=== PATIENT | male | born 1960 | race Caucasian/White ===

== ENCOUNTER 2021-09-18 14:10 | Emergency (ER) | payer OTHER, SELFPAY ==
[2021-09-18 14:10] VITALS: BP 124/78; PULSE 111; RESP 22; TEMP 36; BMI 21.2
--- NOTE | 2021-09-18 14:27 | CT_ITS ---
STUDY: CT ABDOMEN AND PELVIS WITH CONTRAST REASON FOR EXAM: Male, 61 years old. Abdominal pain RADIATION DOSAGE (If Supplied By Facility): CTDIvol = ( 11.4 ) mGy, DLP = ( 743.67 ) mGycm TECHNIQUE: Transaxial images were obtained from the dome of the diaphragm to the symphysis pubis without oral contrast. IV 100mL Isovue-300 was administered. Sagittal and coronal images were reconstructed. Individualized dose optimization techniques were used for this CT. COMPARISON: None. FINDINGS: Focal right lower lobe infiltrate. The visualized portions of the heart are within normal limits. Small amount of free intraperitoneal air. Normal liver. There is a small amount of right perihepatic fluid. Fluid is also seen in the subhepatic space on the right side. There is a 1.6 x 1.5 cm cyst in the inferior lateral aspect of the right lobe of the liver. Mildly distended gallbladder lumen. Normal spleen. Normal pancreas. Normal bilateral adrenal glands. Normal right kidney. Normal left kidney. Retroaortic left renal vein. This is a normal variant. There is a moderate-sized hiatal hernia. There appears to be prior right hemicolectomy and anastomosis. There is evidence of diffuse thickening and abnormal appearance of the terminal ileum with increased markings in the surrounding peritoneal fat. There is also evidence of diffuse abnormal thickening of the wall of the distal colon suggestive of a colitis. Fluid is also seen within the pelvis. Diffuse abnormal thickening of the transverse colon. There are multiple colonic diverticula consistent with diverticulosis. Contain air is seen within the sigmoid mesentery. The patient is status post appendectomy. Normal abdominal aorta. Normal inferior vena cava. Normal retroperitoneum. Normal urinary bladder. Normal abdominal wall. Normal osseous structures. CT/Abdomen/Pelvis W IV Cont ONLY IMPRESSION: Ascites. Small amount of free intraperitoneal air as well as contained air within the mesentery in the sigmoid region. Abnormal appearance of the terminal ileum as well as the rectosigmoid colon. Surgical anastomosis seen in the right lower quadrant. Possible prior right hemicolectomy. Diffuse thickening of the transverse colon. Electronically Signed: Marques Rosado MD at 15:44 EDT ,
--- NOTE | 2021-09-18 14:28 | EDS_ITS ---
HPI History of Present Illness Chief Complaint: Abd Pain Informant: patient and spouse/S.O. Narrative Narrative: 61-year-old male presents to the emergency department with a chief complaint of abdominal pain. He states he had a small amount of abdominal discomfort yesterday and this morning but by around noon became severe. He describes it as across the lower abdomen below the umbilicus. He has had prior appendectomy. He denies any testicular pain or urinary symptoms. He notes some constipation over the past few days. He states that he has been on vacation and eating different things than normal. [facility] Medical History HTN (hypertension) Allergy/AdvReac Type Severity Reaction Status Date / Time No Known Allergies Allergy Verified 09/18/21 14:10 Surgical History History of appendectomy Social History (Updated 09/18/21 @ 14:[address] Evens Shelby DO) current gender identity: male Smoking Status: Never smoker ROS ROS ED Constitutional Constitutional ED: Denies chills, fever(s) or weight loss Eyes Eyes: Denies change in vision or diplopia ENT ENT ED: Denies ear pain, rhinorrhea or sore throat Cardiovascular Cardiovascular: Denies chest pain, orthopnea, palpitations or racing heartbeat Respiratory/Chest Respiratory/Chest: Denies cough, dyspnea or orthopnea Gastrointestinal Gastrointestinal: Reports abdominal pain, constipation and nausea; Denies diarrhea or vomiting Genitourinary Genitourinary ED: Denies dysuria, hematuria or urinary frequency Musculoskeletal Musculoskeletal: Denies arthralgias or myalgias Integumentary Denies abscess or rash Neurologic Neurologic: Denies headache(s) or weakness Psychiatric Psychiatric: Denies anxiety, depression, suicidal ideation or suicidal thoughts Endocrine Endocrinology: Denies polydipsia, polyphagia or polyuria Allergic/Immunologic Allergic/Immunologic ED: Denies mouth swelling, tongue swelling or urticaria EXAM Physical Exam Const Vital Signs: 09/18/21 14:10 Temperature 96.8 F L Temperature Source Temporal Pulse Rate 111 H Respiratory Rate 22 H Blood Pressure 124/78 H Blood Pressure Mean 93 Positive well nourished and well developed General Appearance ED: well developed HEENT Reports normocephalic, head/scalp atraumatic, TM's clear and moist mucous membranes Negative for trauma Tympanic Membrane ED: Yes TM's clear Eyes PERRL and EOMs intact bilaterally Neck no lymphadenopathy, supple and no JVD Resp normal respiratory effort and clear to auscultation bilaterally Cardio regular rate, regular rhythm and no murmurs GI GI Narrative: Patient reports tenderness palpation across the lower quadrants of his abdomen. He is guarding and laying on his side with knees bent. This makes examination somewhat difficult. Auscultation: hypoactive bowel sounds Palpation: soft, tender, guarding and rebound tenderness present Back/Spine no CVA tenderness and normal ROM Extremity normal to inspection General Extremety ED: Negative for edema General Extremity: Negative for edema Neuro oriented x3 and CN's II-XII intact bilaterally Sensorium / Orientation: alert Motor Exam: strength 5/5 throughout Psych mental status grossly normal Mood & Affect: Negative for depressed or tearful Skin no rashes or lesions noted and no wounds MDM MDM MDM Narrative Medical decision making narrative: White count elevated 11.4. Glucose 193. Patient received morphine and Zofran and fluids. CT the abdomen pelvis demonstrates ascites intraperitoneal free air and in the mesentery of the sigmoid colon. There is an abnormal thickening of the terminal ileum as well as the transverse colon and rectosigmoid colon. Zosyn was ordered. Case was discussed with on-call surgeon Dr. Sun. He recommends as he is currently taking a complicated prolonged case to the operating room that consideration to transferring him to tertiary care with colorectal surgery should be given. I spoke with the family and the is employed through [employer] and would like to go to [facility] if possible. Lab Data Attestation: I reviewed the patient's lab results. Labs: Laboratory Results - last 24 hr 09/18/21 09/18/21 14:25 14:25 WBC 11.4 H RBC 5.53 Hgb 15.4 Hct 47.9 MCV 86.6 MCH 27.8 MCHC 32.2 RDW Std Deviation 41.5 RDW Coeff of Christelle 13.1 Plt Count 189 MPV 11.9 Immature Gran % (Auto) 0.300 Neut % (Auto) 80.1 H Lymph % (Auto) 12.3 L Summers % (Auto) 6.4 Eos % (Auto) 0.6 Baso % (Auto) 0.3 Absolute Neuts (auto) 9.2 H Absolute Lymphs (auto) 1.41 Nucleated RBC % 0 Sodium 141 Potassium 3.4 L Chloride 107 Carbon Dioxide 26.0 Anion Gap 8 BUN 17 Creatinine 1.14 Estim Creat Clear Calc 78.33 Est GFR (MDRD) Af Amer 84 Est GFR (MDRD) Non-Af 70 BUN/Creatinine Ratio 14.9 Glucose 193 H Calcium 9.1 Total Bilirubin 0.70 AST 19 ALT 24 Alkaline Phosphatase 72 Total Protein 7.4 Albumin 3.8 Globulin 3.6 Albumin/Globulin Ratio 1.1 Lipase 67 L Radiography Diagnostic Testing: Clinical Impression(s) from Imaging Studies Abdomen/Pelvis CT 09/18/21 14:27 IMPRESSION: Ascites. Small amount of free intraperitoneal air as well as contained air within the mesentery in the sigmoid region. Abnormal appearance of the terminal ileum as well as the rectosigmoid colon. Surgical anastomosis seen in the right lower quadrant. Possible prior right hemicolectomy. Diffuse thickening of the transverse colon. Electronically Signed: Marques Rosado MD at 15:44 EDT , Discharge Plan Triage Chief Complaint: Abd Pain ED Provider: Evens Shelby Dx/Rx/DC Orders Clinical Impression: Abdominal pain, acute, Colitis, Perforated abdominal viscus Primary Care Provider: Ally Gamboa Referrals: Ally Gamboa MD [Primary Care Provider] - Disposition Disposition: Acute Care Hospital Discharge Location: [facility]
[2021-09-18 14:41] LABS: Absolute Lymphocyte Count 1.41 X10^3/uL (0.83-4.51); Absolute Neutrophil Count 9.2 X10^3/uL (2.0-7.7); Basophil# 0.03 X10^3/uL; Basophil% 0.3 % (0-1); Eosinophil# 0.07 X10^3/uL; Eosinophils% 0.6 % (0-5); Hematocrit 47.9 % (40-54); Hemoglobin 15.4 g/dL (13.0-16.5); Lymphocyte # 1.41 X10^3/ul (0.83-4.51); Lymphocyte % 12.3 % (19-41); Mean Corp Hgb Conc 32.2 g/dL (32-36); Mean Corpuscular Hgb 27.8 pg (27.0-32.0); Mean Corpuscular Volume 86.6 fL (80-94); Mean Platelet Vol. 11.9 fl (6.2-12.0); Monocyte# 0.73 X10^3/uL; Monocyte% 6.4 % (0-10); NRBC Flagged by Analyzer 0 % (0-5); Neutrophil # 9.16 X10^3/uL (2.7-7.7); Neutrophil % 80.1 % (47-70); Platelet Count 189 K/mm3 (150-450); RBC Distribution Width CV 13.1 % (11.6-14.6); RBC Distribution Width SD 41.5 fl (35.1-43.9); Red Blood Count 5.53 M/mm3 (4.6-6.2); White Blood Count 11.4 K/mm3 (4.4-11.0)
[2021-09-18] MEDS: Morphine 4 MG/ML Syringe IV ×3 (14:44→19:16)
[2021-09-18] MEDS: Ondansetron 4 MG/2 ML Vial IV ×3 (14:44→19:16)
[2021-09-18] MEDS: 0.9% Normal Saline 1,000 ML 1000 ML IV (14:44)
[2021-09-18 15:03] LABS: ALB/GLOB Ratio 1.1 RATIO (0.9-2.4); AST(SGOT) 19 U/L (15-37); Alanine Aminotransfer ALT/SGPT 24 U/L (16-61); Albumin, Serum 3.8 g/dL (3.2-5.0); Alkaline Phosphatase 72 U/L (45-117); Anion Gap 8 (5-15); BUN 17 mg/dL (7-18); BUN/Creat Ratio 14.9 RATIO (10-20); Calcium,Total 9.1 mg/dL (8.5-10.1); Chloride 107 mmol/L (98-107); Creatinine, Serum 1.14 mg/dL (0.70-1.30); EST Glomerular Filtration Rate 70 mL/min (>60); Est Glom Filt Rate - Afr Amer 84 mL/min (>60); Estimated Creatinine Clearance 78.33 ml/min; Globulin 3.6 g/dL (2.2-4.2); Glucose 193 mg/dL (74-106); Lipase 67 U/L (73-393); Potassium 3.4 mmol/L (3.5-5.1); Protein, Total 7.4 g/dL (6.4-8.2); Sodium Level 141 mmol/L (136-145)
[2021-09-18 16:10] VITALS: BP 104/78; PULSE 102; RESP 16; O2SAT 98
[2021-09-18 16:40] LABS: Mucous, Urine 0 SEEN /hpf (<or=2+); Red Blood Cells-Urine 0 SEEN /hpf (0-5); Squamous Epithelial Cells - UA 0 SEEN /hpf (0-5); White Blood Cells 0 SEEN /hpf (0-5)
[2021-09-18 16:44] LABS: Color, Urine Yellow (Yellow); Glucose, Dipstick Normal (Normal); Ketone-Dipstick 15 mg/dl (Negative); Leukocyte Esterase-Dipstick Negative /ul (Negative); Nitrite-Dipstick Negative (Negative); Occult Blood-Urine Negative /ul (Negative); Protein-Dipstick Negative (Negative); Specific Gravity, Urine 1.015 (1.002-1.030); Urine Bilirubin Dipstick Negative (Negative); Urine Clarity Clear (Clear); Urine Urobilinogen Normal (Normal)
[2021-09-18 17:00] VITALS: BP 103/67; PULSE 112; RESP 14; O2SAT 98
[2021-09-18 17:13] LABS: Bacteria RARE /hpf (None Seen)
[2021-09-18 19:08] VITALS: BP 117/68; PULSE 78; RESP 14; TEMP 37.2; O2SAT 99
== END 2021-09-18 19:48 | disposition short-term general hospital (02) ==
PROVIDERS: Emergency Provider Emergency Medicine; PCP Internal Medicine; Visit Provider Emergency Medicine
DX: K63.1 Perforation of intestine (nontraumatic) (principal); K52.9 Noninfective gastroenteritis and colitis, unspecified; I10 Essential (primary) hypertension; K59.00 Constipation, unspecified
CPT/HCPCS: 74177; 80053; 81001; 83690; 85025; 87040; 87811; 96361; 96365; 96375; 96376; 99285; J7030; Q9967; A4216; J2405